=== PATIENT | male | born 1985 | race Caucasian/White ===

== ENCOUNTER 2018-10-09 18:01 | Emergency (ER) | payer OTHER ==
[~2018-10-09] VITALS: Ht 172.7 cm; Wt 86.2 kg
[~2018-10-09 18:01] MED LIST: ARIMIDEX PO; DEPAKOTE 250MG250 M1; IBUPROFEN 800800 M1 PO; PERCOCET 5-3251 EACH PO; TESTOSTERO200 MG/11 IM
[2018-10-09] MEDS ORDERED: KEFLEX500 M1 PO (20:12)
[2018-10-09 20:47] VITALS: BP 133/83
== END 2018-10-09 20:48 | disposition home or self-care (01) ==
LOC: ER 18:01
DX: N60.82 Other benign mammary dysplasias of left breast (principal); H61.23 Impacted cerumen, bilateral; R50.9 Fever, unspecified; F17.210 Nicotine dependence, cigarettes, uncomplicated; I10 Essential (primary) hypertension